=== PATIENT | female | born 1945 | race Caucasian/White ===

== ENCOUNTER → 2017-02-23 | Outpatient (CLI) | payer MEDICARE | END | disposition disaster alternative care site (69) | LOC: LFPA 09:54 | DX: M85.80 Other specified disorders of bone density and structure, unspecified site (principal) ==

== ENCOUNTER → 2017-06-22 | Outpatient (CLI) | payer MEDICARE | END | disposition disaster alternative care site (69) | LOC: GRAD 06-20 09:00 | DX: R10.9 Unspecified abdominal pain (principal); K83.8 Other specified diseases of biliary tract ==